=== PATIENT | male | born 1935 | race Caucasian/White ===

== ENCOUNTER → 2022-02-03 | Outpatient (REF) | payer SELFPAY | END | disposition home or self-care (01) | LOC: OLS.ACH 04:00 | PROVIDERS: Referring Provider Family Medicine; Visit Provider Family Medicine | DX: E43 Unspecified severe protein-calorie malnutrition (principal) | CPT/HCPCS: 36415; 82040 ==

== ENCOUNTER 2022-03-15 08:45 | Outpatient (RCR) | payer SELFPAY ==
[2022-03-01 08:48] VITALS: BP 135/68; PULSE 95; RESP 16; TEMP 36.1; BMI 20.3
--- NOTE | 2022-03-01 15:12 | HP.PCM_ITS ---
History of Present Illness Date of Service: 03/01/22 Chief Complaint: Pressure ulcers of the sacrum and right heel History of Wound: This is an 86-year-old male who is currently a resident of [facility]. He is accompanied by one of his daughters, who is his primary overseer and power of civil attorney. The patient has recently been on Hospice, with decisions to be made as to whether to remain on hospice care or otherwise. Apparently, the patient was in his normal state of health until December 2020. He began to suffer from frequent falls. 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 As result, he is on long-term systemic anticoagulation therapy, currently with Xarelto. As result of his multiple falls in the spring and early summer 2020, the patient suffered a subdural hematoma, and required rehabilitation at [facility]. He subsequently experienced deterioration of his status, and by June 2021 was unable to ambulate or communicate to any significant substantive degree. Patient does not ambulate. He is not interactive. He is incontinent of feces and urine. According to his daughter, his quality of life is poor. He has had a sacral pressure ulcer since July 2021. He also has a pressure ulceration on the right heel. His appetite is not good. At his nursing facility, he has a low air loss mattress. It does not appear as though the patient is repositioned frequently. The patient's blood pressure is labile. He has a history of hypertension. It also appears as though the patient is diabetic. [facility] Medical History (Updated 03/01/22 @ 15:[address] 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) Debility Dementia Diabetes Diabetes mellitus DVT (deep venous thrombosis) Former smoker Former smoker History of deep vein thrombosis Hypertension Hypertension Pressure ulcer of right heel, stage 3 Pressure ulcer of sacral region, stage 3 Weakness Home Medications ascorbic acid (vitamin C) [Vitamin C] mg PO 03/01/22 [History Last Taken Unknown] cholecalciferol (vitamin D3) [Vitamin D3] 50 mcg PO DAILY 03/01/22 [History Last Taken Unknown] docusate sodium 100 mg PO BID 03/01/22 [History Last Taken Unknown] gabapentin 300 mg PO BID 03/01/22 [History Last Taken Unknown] guaifenesin [Mucinex] mg PO 03/01/22 [History Last Taken Unknown] lorazepam 0.5 mg PO QHS PRN 03/01/22 [History Last Taken Unknown] metformin mg PO 03/01/22 [History Last Taken Unknown] morphine mg 03/01/22 [History Last Taken Unknown] multivitamin,ub-bydc-rxrsnwri [Multi Cebrun] tab 03/01/22 [History Last Taken Unknown] prednisone 03/01/22 [History Last Taken Unknown] rivaroxaban [Xarelto] 20 mg PO DAILY 03/01/22 [History Last Taken Unknown] tamsulosin 0.4 mg PO DAILY 03/01/22 [History Last Taken Unknown] tramadol 50 mg PO Q6H PRN 03/01/22 [History Last Taken Unknown] vitamin E unit PO 03/01/22 [History Last Taken Unknown] zinc mg PO 03/01/22 [History Last Taken Unknown] Vital Signs Vital Signs Vital Signs: 03/01/22 08:48 Temperature 96.9 F L Temperature Source Temporal Pulse Rate 95 Respiratory Rate 16 Blood Pressure 135/68 H Blood Pressure Mean 90 Blood Pressure Source Monitor Weight Weight: 150 lb Body Mass Index (BMI) 20.3 Physical Exam Const no apparent distress and average body habitus Constitutional Narrative: The patient is not interactive to any significant degree. He appears to be in no distress. General Appearance: comfortable and well developed Orientation / Consciousness: awake HEENT normocephalic and head/scalp atraumatic Head and Scalp: normal to inspection, normocephalic and atraumatic External Ear: external ears normal Eyes PERRL and EOMs intact bilaterally Resp normal respiratory effort, normal air movement, no retractions and no use of accessory muscles Extremity no calf tenderness General Extremity: Negative for clubbing or cyanosis Skin Wound Narrative: A healed pressure ulceration is noted on the left posterior heel. An open ulceration is noted on the right posterolateral heel. There is a moderate amount of bioburden and nonviable tissue. There is no sign of infection or cellulitis. Dimensions are documented elsewhere. A small opening is noted in the sacral area, approximately 1 cm in diameter. There is significant tunneling and undermining superiorly. There is no sign of infection or cellulitis. There is no significant drainage or odor. No significant erythema or redness are noted. Neuro Sensorium / Orientation: lethargic Psych Appearance: grossly normal and appropriate Attitude: calm Activity / Motor Behavior: appropriate eye contact Speech: normal speech Mood & Affect: euthymic mood Thought Process: normal thought process Thought Content: normal thought content Attention / Concentration: attention grossly intact Debridement Note Debridement Note Wound debrided: Right posterolateral heel Laterality: Right Type of Debridement: Excisional debridement Anesthesia Used: 5% Lidocaine Gel Depth: Down to and including healthy tissue and in the subcutaneous layer Percentage of wound debrided: 100 Instrument Used: 5mm curette Tissue Removed: Bioburden and nonviable tissue Severity: Fat Layer Exposed Amount of bleeding with debridement: Mild Bleeding Controlled with: Compression and gauze Patient tolerated procedure: Patient tolerated procedure well Post-Debridement Measurements and Additional Note: Post-Debridement Measurements/Treatment - Nurse 1 - General Ulcer Assessment Start: 03/01/22 08:47 Freq: Status: Active Protocol: MAREN Activity Type Activity Date Activity User E-Sign Co-Sign Detail Recorded Client Recorded Date Recorded By Document 03/01/22 08:48 NAUN [id number] 03/01/22 09:03 NAUN 03/01/22 08:48 WC - Today's Visit Information Type of service Initial Visit Arrival Mode Stretcher Transfer Assistance Manual Transfer Assist (Other) transport Patient Identification Verified (Name & Yes ) Patient Requires Transmission-Based No Precautions Safety Precautions NA Height and Weight Height 6 ft Weight 150 lb Weight in Pounds 150.0 lbs Body Mass Index (BMI) 20.3 BMI Classification Normal BSA - Kory 1.89 Vital Signs Temperature (97.8 F-99.1 F) 96.9 F L Temperature Source Temporal Pulse Rate (60-100) 95 Pulse Location Monitor Respiratory Rate (12-18) 16 Blood Pressure (90/60-120/80) 135/68 H Blood Pressure Mean 90 Source Monitor Pain Scale: 0-10 Numeric Is Patient Pain Free? No - Nurse 1 - General Ulcer Measurement Start: 03/01/22 08:47 Freq: Status: Active Protocol: Activity Type Activity Date Activity User E-Sign Co-Sign Detail Recorded Client Recorded Date Recorded By Document 03/01/22 08:48 NAUN [id number] 03/01/22 09:03 NAUN 03/01/22 08:48 Wound Center Nurse 1 #2 sacral -Combined with other wound No -Current Size (cm) - Length 1.2 -Current Size (cm) - Width 0.6 -Current Size (cm) - Depth 1.2 -Total Square Cm 0.72 -Photo Taken No -Tunneling No -Undermining/Tunneling Yes -Undermining/Tunneling Starts (O'clock 12 ) -Undermining/Tunneling Ends (O'clock) 12 -Maximum Distance (cm) 4 -Circular Undermining No -Exudate Amt Large -Exudate Type Serosanguineous -Granulation Quality N/A -Slough/Fibrin Yes -Necrosis Amt Large (67-100%) -Necrotic Tissue Type Adherent Slough -Texture (Jie-wound Skin Appearance) No Abnormality, Assessed -Moisture (Jie-wound Skin Appearance) No Abnormality, Assessed -Color (Jie-wound Skin Appearance) No Abnormality, Assessed -Temperature (Jie-wound Skin No Abnormality Appearance) (Pt Warm) -Tenderness on Palpation (Jie-wound No Skin Appearance) -Ulcer Cleansing Soap and Water -Foul Odor after Cleansing No -Anesthetic Used 4% Lidocaine Solution #1 R heel -Combined with other wound No -Current Size (cm) - Length 0.5 -Current Size (cm) - Width 1.8 -Current Size (cm) - Depth 0.2 -Total Square Cm 0.90 -Date of Last Picture (Recall this 03/01/22 field) -Photo Taken Yes -Epithelialization None Present -Tunneling No -Undermining/Tunneling No -Circular Undermining Yes -Exudate Amt Medium -Exudate Type Serosanguineous -Wound Margin Distinct, Outline Attached -Slough/Fibrin Yes -Necrosis Amt Large (67-100%) -Necrotic Tissue Type Adherent Slough -Texture (Jie-wound Skin Appearance) Assessed, Scarring -Moisture (Jie-wound Skin Appearance) No Abnormality, Assessed -Color (Jie-wound Skin Appearance) No Abnormality, Assessed -Temperature (Jie-wound Skin No Abnormality Appearance) (Pt Warm) -Tenderness on Palpation (Jie-wound No Skin Appearance) -Ulcer Cleansing Soap and Water -Foul Odor after Cleansing No -Anesthetic Used 4% Lidocaine Solution Lower Limb Edema Present No WC - Nurse 2 - General Ulcer CM Notes Start: 03/01/22 08:47 Freq: Status: Active Protocol: Activity Type Activity Date Activity User E-Sign Co-Sign Detail Recorded Client Recorded Date Recorded By Document 03/01/22 12:59 PL [id number] 03/01/22 13:02 PL 03/01/22 12:59 Wound Center Nurse 2 #2 sacral -Time 09:40 -Procedure Performed No -Post Debridement (cm) - Length 1.2 -Post Debridement (cm) - Width 0.6 -Post Debridement (cm) - Depth 1.2 -Total Square (Post) (cm) 0.72 -Tunneling Yes -Tunneling Position (O'clock) 12 -Tunneling Distance (cm) 4.5 -Circular Undermining No -Wound/Ulcer Outcome Not Healed -Ulcer Cleansing Rinsed/ Irrigated with Saline -Foul Odor after Cleansing No -Bioengineered Tissue No #1 R heel -Time 09:40 -Correct Patient Yes -Correct Side, Site, Position Yes -Correct Procedure Yes -Procedure Performed Yes -Type of Procedure Debridement -Clinical Debridement Subcutaneous -Tissue Removed Subcutaneous -Post Debridement (cm) - Length 0.5 -Post Debridement (cm) - Width 1.8 -Post Debridement (cm) - Depth 0.2 -Total Square (Post) (cm) 0.90 -Area of Debridement (cm) - Length 0.5 -Area of Debridement (cm) - Width 1.8 -Total Square (Area) (cm) 0.90 -Tunneling No -Undermining/Tunneling No -Circular Undermining No -Wound/Ulcer Outcome Not Healed -Ulcer Cleansing Rinsed/ Irrigated with Saline -Foul Odor after Cleansing No -Bioengineered Tissue No -Bleeding Controlled with Pressure -Treatment Response Procedure Tolerated Well -Debridement - Subq, 1st 20sq cm Yes Pain Scale: 0-10 Numeric Is Patient Pain Free? Yes WC - Nurse 3 - General Ulcer D/C NN Start: 03/01/22 08:47 Freq: Status: Active Protocol: Activity Type Activity Date Activity User E-Sign Co-Sign Detail Recorded Client Recorded Date Recorded By Document 03/01/22 09:52 DL [id number] 03/01/22 09:55 DL 03/01/22 09:52 Wound Care Nurse 3 #2 sacral -Ulcer Cleansing Rinsed/ Irrigated with Saline -Foul Odor after Cleansing No -Primary Dressing Applied Aquacel AG 4x4, Mepilex Border -Primary Dressing Covered/Secured with Dry Gauze, Secured with Tape -Aquacel AG 4x4 1 -Mepilex Border 1 #1 R heel -Ulcer Cleansing Rinsed/ Irrigated with Saline -Foul Odor after Cleansing No -Other Dressing aquacel AG -Primary Dressing Covered/Secured with Dry Gauze & Roll Gauze, Secured with Tape Treatment Response Procedure Tolerated Well Pain Scale: 0-10 Numeric Is Patient Pain Free? Yes WC - Visit Discharge Discharge Condition Stable Ambulatory Status Stretcher Transportation [facility] Type Senior Living Care Facility Orders Sent Yes Assessment/Plan Assessment/Plan (1) Pressure ulcer of right heel, stage 3: CODE(S): L89.613 - Pressure ulcer of right heel, stage 3 (2) Pressure ulcer of sacral region, stage 3: CODE(S): L89.153 - Pressure ulcer of sacral region, stage 3 (3) Debility: CODE(S): R53.81 - Other malaise (4) Diabetes mellitus: CODE(S): E11.9 - Type 2 diabetes mellitus without complications QUALIFIERS: Diabetes mellitus type: type 2 Diabetes mellitus usp insulin use: without usp use Diabetes mellitus complication status: with other specified complication Qualified Code(s): E11.69 - Type 2 diabetes mellitus with other specified complication (5) Weakness: CODE(S): R53.1 - Weakness (6) 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): CODE(S): I69.319 - Unspecified symptoms and signs involving cognitive functions following cerebral infarction (7) Hypertension: CODE(S): I10 - Essential (primary) hypertension (8) Former smoker: CODE(S): Z87.891 - Personal history of nicotine dependence (9) History of deep vein thrombosis: CODE(S): Z86.718 - Personal history of other venous thrombosis and embolism (10) Chronic anticoagulation: CODE(S): Z79.01 - termite technician (current) use of anticoagulants (11) Dementia: CODE(S): F03.90 - Unspecified dementia without behavioral disturbance PLAN: This is an 86-year-old male with dementia and debility. He is largely nonfunctional, having experienced a subdural hematoma nearly 1 year ago. He has recently been admitted to Hospice care. He presented today accompanied by his daughter, seeking evaluation and recommendations with regard to management. A lengthy discussion has been undertaken with the patient and his daughter at the bedside. Aggressive measures do not appear to be warranted, given the patient's compromised physical and functional state. Under normal circumstances, given the degree of undermining, consideration might be given to surgical unroofing and debridement. This does not appear to be warranted given the patient's condition. Conservative and palliative treatment measures have been recommended. Offloading measures are to be implemented, and have been discussed in detail. It appears as though the patient is currently on a [id number] mattress. Frequent repositioning has been recommended as well. With respect to local wound care, we are to implement the use of Aquacel silver to both of the patient's pressure ulcerations, on the right heel and on the sacrum. Patient is to return in 2 weeks for reevaluation. We will reevaluate the patient at 2-week intervals, given that palliative care is to be the preferred pathway. Optimizing the patient's nutrition and glycemic control has been recommended. Maintaining good hygiene is to be a goal, given that the patient is incontinent of stool and urine. Total time: 64 minutes
[2022-03-15 08:49] VITALS: BP 114/66; PULSE 85; TEMP 35.9; BMI 20.3
--- NOTE | 2022-03-15 09:58 | HP.PCM_ITS ---
History of Present Illness Date of Service: 03/15/22 Chief Complaint: Pressure ulcers of the sacrum and right heel History of Wound: This is an 86-year-old male who is currently a resident of [facility]. He is accompanied by one of his daughters, who is his primary overseer and power of collections attorney. The patient has recently been admitted to Hospice care. Apparently, the patient was in his normal state of health until December 2020. He began to suffer from frequent falls. 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 As result, he is on long-term systemic anticoagulation therapy, currently with Xarelto. As a result of his multiple falls in the spring and early summer 2020, the patient suffered a subdural hematoma, and required rehabilitation at [facility]. He subsequently experienced deterioration of his status, and by June 2021 was unable to ambulate or communicate to any significant substantive degree. The patient does not ambulate. He is not interactive. He is incontinent of feces and urine. According to his daughter, his quality of life is poor. He has had a sacral pressure ulcer since July 2021. He also has a pressure ulceration on the right heel. His appetite is not good. At his nursing facility, he has a low air loss mattress. It does not appear as though the patient is repositioned frequently. The patient's blood pressure is labile. He has a history of hypertension. It also appears as though the patient is diabetic. [facility] Medical History (Updated 03/01/22 @ 15:[address] 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) Debility Dementia Diabetes Diabetes mellitus DVT (deep venous thrombosis) Former smoker Former smoker History of deep vein thrombosis Hypertension Hypertension Pressure ulcer of right heel, stage 3 Pressure ulcer of sacral region, stage 3 Weakness Home Medications ascorbic acid (vitamin C) [Vitamin C] mg PO 03/01/22 [History Last Taken Unknown] cholecalciferol (vitamin D3) [Vitamin D3] 50 mcg PO DAILY 03/01/22 [History Last Taken Unknown] docusate sodium 100 mg PO BID 03/01/22 [History Last Taken Unknown] gabapentin 300 mg PO BID 03/01/22 [History Last Taken Unknown] guaifenesin [Mucinex] mg PO 03/01/22 [History Last Taken Unknown] lorazepam 0.5 mg PO QHS PRN 03/01/22 [History Last Taken Unknown] metformin mg PO 03/01/22 [History Last Taken Unknown] morphine mg 03/01/22 [History Last Taken Unknown] multivitamin,[id number]-peud-[id number] [Multi Cebrun] tab 03/01/22 [History Last Taken Unknown] prednisone 03/01/22 [History Last Taken Unknown] rivaroxaban [Xarelto] 20 mg PO DAILY 03/01/22 [History Last Taken Unknown] tamsulosin 0.4 mg PO DAILY 03/01/22 [History Last Taken Unknown] tramadol 50 mg PO Q6H PRN 03/01/22 [History Last Taken Unknown] vitamin E unit PO 03/01/22 [History Last Taken Unknown] zinc mg PO 03/01/22 [History Last Taken Unknown] Vital Signs Vital Signs Vital Signs: 03/15/22 08:49 Temperature 96.6 F L Temperature Source Temporal Pulse Rate 85 Blood Pressure 114/66 Blood Pressure Mean 82 Blood Pressure Source Monitor Weight Weight: 150 lb Body Mass Index (BMI) 20.3 Physical Exam Const alert and no apparent distress Constitutional Narrative: The patient is awake and appears comfortable, without distress. He is minimally interactive to environmental stimuli. General Appearance: lethargic and frail Orientation / Consciousness: awake and lethargic HEENT normocephalic and head/scalp atraumatic Head and Scalp: normal to inspection, normocephalic and atraumatic External Ear: external ears normal Eyes PERRL and EOMs intact bilaterally Resp normal respiratory effort, normal air movement, no retractions and no use of accessory muscles Extremity General Extremity: Negative for clubbing or cyanosis Skin Wound Narrative: Ulcerations persist in the sacral area and on the right heel. The right heel ulceration demonstrates a small amount of bioburden. There is no sign of infection or cellulitis. Dimensions are documented elsewhere. The sacral ulceration demonstrates a small external opening, measuring 1 to 2 cm in diameter, but with significant undermining, particularly in the superior direction. Dimensions are documented elsewhere. There is surrounding erythema. Yellowish drainage is noted, which was cultured by means of swab, for both aerobic and anaerobic bacterial growth. Neuro Neuro Narrative: The patient appears comfortable, but is minimally interactive. Sensorium / Orientation: awake and lethargic Psych Appearance: grossly normal and appropriate Attitude: calm Activity / Motor Behavior: appropriate eye contact Speech: normal speech Mood & Affect: euthymic mood Thought Process: normal thought process Thought Content: normal thought content Attention / Concentration: attention grossly intact Debridement Note Debridement Note Wound debrided: Right lateral heel ulceration Laterality: Right Type of Debridement: Excisional debridement Anesthesia Used: 5% Lidocaine Gel Depth: Down to and including healthy tissue and in the subcutaneous layer Percentage of wound debrided: 100 Instrument Used: 5mm curette Tissue Removed: Bioburden Severity: Fat Layer Exposed Amount of bleeding with debridement: Mild Bleeding Controlled with: Compression and gauze Patient tolerated procedure: Patient tolerated procedure well Debridement Free Text: With respect to the patient's sacral pressure ulceration, with significant undermining, it is noted that there is yellowish, purulent drainage. Swab cultures have been obtained for both aerobic and anaerobic bacterial growth. Post-Debridement Measurements and Additional Note: Post-Debridement Measurements/Treatment AGUSTIN - Nurse 1 - General Ulcer Assessment Start: 03/01/22 08:47 Freq: Status: Active Protocol: MAREN Activity Type Activity Date Activity User E-Sign Co-Sign Detail Recorded Client Recorded Date Recorded By Document 03/01/22 08:48 NE [id number] 03/01/22 09:03 NE Document 03/15/22 08:49 NE [id number] 03/15/22 09:04 NE 03/01/22 03/15/22 08:48 08:49 - Today's Visit Information Type of service Initial Visit Follow-up Visit (Physician/TRACK HOE OPERATOR ) Arrival Mode Stretcher Stretcher Transfer Assistance Manual Transfer Assist (Other) transport Patient Identification Verified (Name & Yes Yes ) Patient Requires Transmission-Based No No Precautions Safety Precautions NA Height and Weight Height 6 ft Weight 150 lb Weight in Pounds 150.0 lbs Body Mass Index (BMI) 20.3 20.3 BMI Classification Normal Normal BSA - Kory 1.89 Vital Signs Temperature (97.8 F-99.1 F) 96.9 F L 96.6 F L Temperature Source Temporal Temporal Pulse Rate (60-100) 95 85 Pulse Location Monitor Monitor Respiratory Rate (12-18) 16 Blood Pressure (90/60-120/80) 135/68 H 114/66 Blood Pressure Mean 90 82 Source Monitor Monitor History Since Last Visit- (Skip if this is Patient's initial visit) Have you changed medications since your No last visit? Any new allergies or adverse reactions No Had a fall/change in ADL's that may No increase risk of falls Signs or symptoms of abuse and/or No neglect since last visit Have you been in the hospital since your No last visit? Has dressing in place as prescribed Yes Has compression in place as prescribed Yes Has offloadiing in place as prescribed N/A Experienced any changes in pain level or No management Pain Scale: 0-10 Numeric Is Patient Pain Free? No Yes WC - Nurse 1 - General Ulcer Measurement Start: 03/01/22 08:47 Freq: Status: Active Protocol: Activity Type Activity Date Activity User E-Sign Co-Sign Detail Recorded Client Recorded Date Recorded By Document 03/01/22 08:48 NAUN [id number] 03/01/22 09:03 AK Document 03/15/22 08:49 AK [id number] 03/15/22 09:04 AK 03/01/22 03/15/22 08:48 08:49 Wound Center Nurse 1 #2 sacral -Combined with other wound No No -Current Size (cm) - Length 1.2 1.5 -Current Size (cm) - Width 0.6 0.8 -Current Size (cm) - Depth 1.2 0.8 -Total Square Cm 0.72 1.20 -Photo Taken No Yes -Tunneling No No -Undermining/Tunneling Yes Yes -Undermining/Tunneling Starts (O'clock 12 1 ) -Undermining/Tunneling Ends (O'clock) 12 12 -Maximum Distance (cm) 4 1.5 -Circular Undermining No No -Change in Wound Grade/Stage No -Exudate Amt Large Large -Exudate Type Serosanguineous Serosanguineous -Wound Margin Distinct, Outline Attached -Granulation Amt None Present (0 %) -Granulation Quality N/A N/A -Slough/Fibrin Yes Yes -Necrosis Amt Large (67-100%) Medium (34-66%) -Necrotic Tissue Type Adherent Slough Adherent Slough -Structure Exposed N/A -Texture (Jie-wound Skin Appearance) No Abnormality, No Abnormality, Assessed Assessed -Moisture (Jie-wound Skin Appearance) No Abnormality, No Abnormality, Assessed Assessed -Color (Jie-wound Skin Appearance) No Abnormality, No Abnormality, Assessed Assessed -Temperature (Jie-wound Skin No Abnormality No Abnormality Appearance) (Pt Warm) (Pt Warm) -Tenderness on Palpation (Jie-wound No No Skin Appearance) -Ulcer Cleansing Soap and Water Soap and Water -Foul Odor after Cleansing No No -Anesthetic Used 4% Lidocaine 5% Lidocaine Solution Gel #1 R heel -Combined with other wound No No -Current Size (cm) - Length 0.5 3.4 -Current Size (cm) - Width 1.8 0.8 -Current Size (cm) - Depth 0.2 0.3 -Total Square Cm 0.90 2.72 -Date of Last Picture (Recall this 03/01/22 field) -Photo Taken Yes No -Epithelialization None Present Medium 34-66% -Tunneling No No -Undermining/Tunneling No No -Circular Undermining Yes No -Exudate Amt Medium Small -Exudate Type Serosanguineous Serosanguineous -Wound Margin Distinct, Distinct, Outline Outline Attached Attached -Granulation Amt Small (1-33%) -Granulation Quality N/A -Slough/Fibrin Yes Yes -Necrosis Amt Large (67-100%) Small (1-33%) -Necrotic Tissue Type Adherent Slough Adherent Slough -Structure Exposed N/A -Texture (Jie-wound Skin Appearance) Assessed, No Abnormality, Scarring Assessed -Moisture (Jie-wound Skin Appearance) No Abnormality, No Abnormality, Assessed Assessed -Color (Jie-wound Skin Appearance) No Abnormality, No Abnormality, Assessed Assessed -Temperature (Jie-wound Skin No Abnormality No Abnormality Appearance) (Pt Warm) (Pt Warm) -Tenderness on Palpation (Jie-wound No No Skin Appearance) -Ulcer Cleansing Soap and Water Rinsed/ Irrigated with Saline -Foul Odor after Cleansing No No -Anesthetic Used 4% Lidocaine 4% Lidocaine Solution Solution Lower Limb Edema Present No No WC - Nurse 2 - General Ulcer CM Notes Start: 03/01/22 08:47 Freq: Status: Active Protocol: Activity Type Activity Date Activity User E-Sign Co-Sign Detail Recorded Client Recorded Date Recorded By Document 03/01/22 12:59 PL [id number] 03/01/22 13:02 PL Document 03/15/22 09:44 PL [id number] 03/15/22 09:48 PL 03/01/22 03/15/22 12:59 09:44 Wound Center Nurse 2 #2 sacral -Time 09:40 09:22 -Correct Patient Yes -Correct Side, Site, Position Yes -Correct Procedure Yes -Procedure Performed No Yes -Type of Procedure Debridement -Clinical Debridement Subcutaneous -Tissue Removed Subcutaneous -Post Debridement (cm) - Length 1.2 1.5 -Post Debridement (cm) - Width 0.6 0.8 -Post Debridement (cm) - Depth 1.2 0.8 -Total Square (Post) (cm) 0.72 1.20 -Area of Debridement (cm) - Length 0.8 -Area of Debridement (cm) - Width 0.8 -Total Square (Area) (cm) 0.64 -Tunneling Yes No -Tunneling Position (O'clock) 12 -Tunneling Distance (cm) 4.5 -Undermining/Tunneling No -Circular Undermining No No -Wound/Ulcer Outcome Not Healed Not Healed -Ulcer Cleansing Rinsed/ Rinsed/ Irrigated with Irrigated with Saline Saline -Foul Odor after Cleansing No No -Bioengineered Tissue No No -Bleeding Controlled with Pressure -Treatment Response Procedure Tolerated Well -Debridement - Subq, 1st 20sq cm No #1 R heel -Time 09:40 09:22 -Correct Patient Yes Yes -Correct Side, Site, Position Yes Yes -Correct Procedure Yes Yes -Procedure Performed Yes Yes -Type of Procedure Debridement Debridement -Clinical Debridement Subcutaneous Subcutaneous -Tissue Removed Subcutaneous Subcutaneous -Post Debridement (cm) - Length 0.5 3.4 -Post Debridement (cm) - Width 1.8 0.8 -Post Debridement (cm) - Depth 0.2 0.3 -Total Square (Post) (cm) 0.90 2.72 -Area of Debridement (cm) - Length 0.5 3.4 -Area of Debridement (cm) - Width 1.8 0.8 -Total Square (Area) (cm) 0.90 2.72 -Tunneling No No -Undermining/Tunneling No No -Circular Undermining No No -Wound/Ulcer Outcome Not Healed Not Healed -Ulcer Cleansing Rinsed/ Rinsed/ Irrigated with Irrigated with Saline Saline -Foul Odor after Cleansing No No -Bioengineered Tissue No No -Bleeding Controlled with Pressure Pressure -Treatment Response Procedure Procedure Tolerated Well Tolerated Well -Debridement - Subq, 1st 20sq cm Yes Yes Pain Scale: 0-10 Numeric Is Patient Pain Free? Yes Yes WC - Nurse 3 - General Ulcer D/C NN Start: 03/01/22 08:47 Freq: Status: Active Protocol: Activity Type Activity Date Activity User E-Sign Co-Sign Detail Recorded Client Recorded Date Recorded By Document 03/01/22 09:52 DL [id number] 03/01/22 09:55 DL Document 03/15/22 09:51 AK [id number] 03/15/22 09:52 AK 03/01/22 03/15/22 09:52 09:51 Wound Care Nurse 3 #2 sacral -Ulcer Cleansing Rinsed/ Rinsed/ Irrigated with Irrigated with Saline Saline -Foul Odor after Cleansing No No -Negative Pressure Wound Therapy N/A -Primary Dressing Applied Aquacel AG 4x4, Aquacel Rope Mepilex Border -Other Dressing ABD -Primary Dressing Covered/Secured with Dry Gauze, Secured with Secured with Tape Tape -Aquacel AG 4x4 1 -Aquacel Rope 1 -Mepilex Border 1 #1 R heel -Ulcer Cleansing Rinsed/ Rinsed/ Irrigated with Irrigated with Saline Saline -Foul Odor after Cleansing No No -Negative Pressure Wound Therapy N/A -Primary Dressing Applied Aquacel AG 4x4 -Other Dressing aquacel AG nurses hat -Primary Dressing Covered/Secured with Dry Gauze & Dry Gauze & Roll Gauze, Roll Gauze, Secured with Secured with Tape Tape -Aquacel AG 4x4 1 Treatment Response Procedure Tolerated Well Pain Scale: 0-10 Numeric Is Patient Pain Free? Yes Yes - Visit Discharge Discharge Condition Stable Stable Ambulatory Status Stretcher Stretcher Transportation [facility] Ambulance Accompanied by daughter Medication Reconcilliation completed & Yes provided to patient/care provider Clinical Summary of Care Provided Yes Facility Type [facility] Care Facility Orders Sent Yes Assessment/Plan Assessment/Plan (1) Pressure ulcer of right heel, stage 3: CODE(S): L89.613 - Pressure ulcer of right heel, stage 3 (2) Pressure ulcer of sacral region, stage 3: CODE(S): L89.153 - Pressure ulcer of sacral region, stage 3 (3) Dementia: CODE(S): F03.90 - Unspecified dementia without behavioral disturbance (4) Chronic anticoagulation: CODE(S): Z79.01 - termite control service representative (current) use of anticoagulants (5) History of deep vein thrombosis: CODE(S): Z86.718 - Personal history of other venous thrombosis and embolis m (6) Former smoker: CODE(S): Z87.891 - Personal history of nicotine dependence (7) Hypertension: CODE(S): I10 - Essential (primary) hypertension (8) 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): CODE(S): I69.319 - Unspecified symptoms and signs involving cognitive functions following cerebral infarction (9) Weakness: CODE(S): R53.1 - Weakness (10) Diabetes mellitus: CODE(S): E11.9 - Type 2 diabetes mellitus without complications QUALIFIERS: Diabetes mellitus type: type 2 Diabetes mellitus termite control service representative insulin use: without penitentiary use Diabetes mellitus complication status: with other specified complication Qualified Code(s): E11.69 - Type 2 diabetes mellitus with other specified complication (11) Debility: CODE(S): R53.81 - Other malaise PLAN: This is an 86-year-old male with dementia and debility. He is largely nonfunctional, having experienced a subdural hematoma nearly 1 year ago. He has recently been admitted to Hospice care. He presented today accompanied by his daughter. A lengthy discussion has again been undertaken with the patient and his daughter at the bedside. Aggressive measures do not appear to be warranted, given the patient's compromised physical and functional state. Under normal circumstances, given the degree of undermining, consideration might be given to surgical unroofing and debridement. This does not appear to be warranted given the patient's condition. Conservative and palliative treatment measures have been recommended. Offloading measures are to be implemented, and have been discussed in detail. It appears as though the patient is currently on a [id number] mattress. Frequent repositioning has been recommended as well. With respect to local wound care, we are to continue the use of Aquacel Silver to both of the patient's pressure ulcerations, on the right heel and on the sacrum. The patient is to return in 2 weeks for reevaluation. Cultures of the patient's sacral pressure ulceration have been obtained, and results will be awaited. We will react accordingly. We will reevaluate the patient at 2-week intervals, given that palliative care is to be the preferred pathway. Optimizing the patient's nutrition and glycemic control has been recommended. Maintaining good hygiene is to be a goal, given that the patient is incontinent of stool and urine. We also plan to coordinate with Hospice to determine what treatment modalities are available to the patient, in an effort to optimize his conservative/palliative management. Total time: 29 minutes
--- NOTE | 2022-03-18 13:47 | WC ---
An order for antibiotics was faxed to the [facility] a resident at. Cipro 500mg PO BID x 10days No Refills. Linezolid 600mg PO BID x 10 days.
== END 2022-03-15 23:59 | disposition home or self-care (01) ==
LOC: WC 08:45
PROVIDERS: PCP Family Medicine; Visit Provider Surgery
DX: L89.153 Pressure ulcer of sacral region, stage 3 (principal); L89.613 Pressure ulcer of right heel, stage 3; F03.90 Unspecified dementia, unspecified severity, without behavioral disturbance, psychotic disturbance, mood disturbance, and anxiety; E11.9 Type 2 diabetes mellitus without complications; I10 Essential (primary) hypertension; I69.319 Unspecified symptoms and signs involving cognitive functions following cerebral infarction; R15.9 Full incontinence of feces; R32 Unspecified urinary incontinence; R29.6 Repeated falls; Z79.01 Long term (current) use of anticoagulants; Z79.899 Other long term (current) drug therapy; Z86.718 Personal history of other venous thrombosis and embolism; Z87.891 Personal history of nicotine dependence
CPT/HCPCS: 11042; 87070; 87075; 87077; 87186; 87205; 99213; G0463